=== PATIENT | male | born 2005 | race Caucasian/White ===

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

== ENCOUNTER 2024-04-05 05:23 | Emergency (ER) | payer OTHER, SELFPAY ==
[2024-04-05 05:23] VITALS: BP 157/103; PULSE 112; RESP 16; TEMP 36.2; O2SAT 98; BMI 39.3
[2024-04-05 05:28] VITALS: BP 157/103; PULSE 112; RESP 16; TEMP 36.2; O2SAT 98
[2024-04-05] MEDS: predniSONE 20 MG Tablet 60 MG PO (06:15)
[2024-04-05] MEDS: DiphenhydrAMINE 25 MG Capsule PO (06:15)
--- NOTE | 2024-04-05 07:12 | EDS_ITS ---
HPI History of Present Illness Chief Complaint: Rash Narrative Narrative: Patient is a 18-year-old male presenting with worsening rash. Patient has been using Lotrimin for jock itch and was recently prescribed fluconazole to take once a week for 3 weeks. After taking the first dose he now has a rash that has developed in his bilateral axilla and is since progressed to the AC fossa's bilateral as well as on his neck and trunk. He states the rash is quite itchy. He came in for evaluation of allergic reaction. Did not take any new medications. No new lotions or soaps reported. Is feeling some mild chest tightness. Denies any sores or swelling in his mouth. Denies any painful urination or defecation. His Zoloft was increased last month but no other medication changes reported. PFSH PENDING SALE TO [facility] Home Medications ?Medication ?Instructions ?Recorded ?Last Taken ?Type amitriptyline 25 mg tablet 25 mg PO QHS 04/05/24 Unknown History fluconazole 150 mg tablet 150 mg PO QWEEK 04/05/24 Unknown History ketoconazole 2 % topical cream 1 applic topical DAILY 3 weeks #60 04/05/24 Unknown Rx grams prednisone 20 mg tablet 40 mg (2 x 20 mg) PO DAILY #8 tabs 04/05/24 Unknown Rx rizatriptan 10 mg tablet 10 mg PO DAILY PRN migraine 04/05/24 Unknown History headache sertraline 100 mg tablet 100 mg PO DAILY 04/05/24 Unknown History Allergy/AdvReac Type Severity Reaction Status Date / Time No Known Allergies Allergy Verified 04/05/24 05:24 Social History Smoking Status: Never smoker ROS ROS ED Constitutional Constitutional ED: Denies chills or fever(s) Eyes Eyes: Denies change in vision ENT ENT ED: Reports other Details: Denies any mouth sores or pain ; Denies sore throat Cardiovascular Cardiovascular: Reports other Details: Positive chest tightness ; Denies chest pain Respiratory/Chest Respiratory/Chest: Denies cough or dyspnea Gastrointestinal Gastrointestinal: Denies nausea or vomiting Musculoskeletal Musculoskeletal: Denies arthralgias or myalgias Integumentary Reports rash Neurologic Neurologic: Denies headache(s) EXAM Physical Exam Const Vital Signs: 04/05/24 05:23 04/05/24 05:28 04/05/24 07:26 Temperature 97.2 F L 97.2 F L 98.0 F Temperature Source Temporal Temporal Pulse Rate 112 H 112 H 89 Respiratory Rate 16 16 18 Blood Pressure 157/103 H 157/103 H 133/88 H Blood Pressure Mean 121 121 103 Pulse Ox 98 98 100 Oxygen Delivery Method Room Air Room Air Positive well nourished and well developed General Appearance ED: well developed and NAD HEENT Reports moist mucous membranes HEENT Narrative: No oral lesions appreciated, oral pharynx normal appearing. Uvula is midline. No edema of the mouth appreciated. Eyes PERRL and EOMs intact bilaterally Eyes Narrative: No periorbital edema Neck supple Neck Narrative: No stridor Chest Wall inspection of chest normal Resp normal respiratory effort and clear to auscultation bilaterally Cardio regular rate and regular rhythm GI normal to inspection, nondistended, normoactive bowel sounds and non-tender Extremity normal to inspection General Extremety ED: Negative for edema General Extremity: Negative for edema Neuro oriented x3 Sensorium / Orientation: alert Psych mental status grossly normal Skin Skin Narrative: Patient has scattered maculopapular rash of his bilateral axilla, AC fossa, neck and now on his trunk. In addition he does have a erythematous rash of the bilateral groin with satellite lesions consistent with tinea cruris. Negative Nikolsky sign. MDM MDM MDM Narrative Medical decision making narrative: Patient is evaluated for a progressing diffuse rash. Vital signs significant for mild tachycardia. Patient is quite nontoxic and well-appearing no signs of anaphylaxis on physical exam. I do not think he requires epinephrine. Will be given dose of Benadryl and prednisone. Patient is monitored and has no progression of his symptoms. I suspect this is a drug reaction to the fluconazole. He does not have any mucosal membrane involvement or palmar involvements. No concern for Mota- Scotty syndrome or erythema multiforme. Will stop the patient's of fluconazole. Will switch him to ketoconazole daily application. He can stop his Lotrimin. Will put him on a burst of steroids. Patient is agreeable this plan of care. Given return precautions. Does not have any progression of s ymptoms while in the emergency room and I feel stable for outpatient follow-up. Is given referral for dermatology for outpatient follow-up. Discharge Plan Triage Chief Complaint: Rash ED Provider: Monica Ocampo Dx/Rx/DC Orders Clinical Impression: Drug reaction, Tinea cruris Instructions: ED Drug Reaction, Other, ED Tinea Cruris General Prescriptions: New ketoconazole 2 % cream 1 applic topical DAILY 21 Days Qty: 60 0RF prednisone 20 mg tablet 40 mg PO DAILY Qty: 8 0RF No Action fluconazole 150 mg tablet 150 mg PO QWEEK rizatriptan 10 mg tablet 10 mg PO DAILY PRN (Reason: migraine headache) sertraline 100 mg tablet 100 mg PO DAILY amitriptyline 25 mg tablet 25 mg PO QHS Primary Care Provider: Maricel Wiseman NP Referrals: Alvin Vidal MD [Med Staff - Transmission Design Engineer] - 1-2 Weeks Maricel Wiseman NP, LOW PR[employer]URE BOILER OPERATOR-C [Primary Care Provider] - Activity Restrictions/Additional Instructions: You can stop using [id number] spray for your groin. You been prescribed a different cream that is to be used daily. Stop using the fluconazole as suspect you had a drug reaction to it. You may take Benadryl as needed for further allergic symptoms. Return to the ER if you have a progression worsening your symptoms. I do recommend he follow-up with dermatology especially if your rashes are not improving. Print Language: Samoan Disposition Disposition: Home, Self Care Discharge Date/Time: 04/05/24 07:28
[2024-04-05 07:26] VITALS: BP 133/88; PULSE 89; RESP 18; TEMP 36.7; O2SAT 100
== END 2024-04-05 07:28 | disposition home or self-care (01) ==
PROVIDERS: Emergency Provider Emergency Medicine; PCP Registered Nurse; Visit Provider Emergency Medicine
DX: B35.6 Tinea cruris (principal); T49.0X5A Adverse effect of local antifungal, anti-infective and anti-inflammatory drugs, initial encounter; Z79.899 Other long term (current) drug therapy
CPT/HCPCS: 99282

== ENCOUNTER → 2025-04-26 | Outpatient (CLI) | payer OTHER, SELFPAY ==
--- NOTE | 2025-04-26 10:20 | RAD_ITS ---
PROCEDURE: ABDOMEN SINGLE VIEW 04/26/2025 REASON FOR EXAM: CONSTIPATION, ABDOMINAL PAIN TECHNIQUE: Three-view supine abdomen COMPARISON: None provided. RAD/Abdomen Single View IMPRESSION: The bowel-gas pattern is unremarkable. No excess stool burden is identified. No mass or mass effect is seen. No significant osseous abnormality is seen Reading Location: [place] [id number]
[2025-04-26 11:27] LABS: Hematocrit 46.6 % (40-54); Hemoglobin 15.9 g/dL (13.0-16.5); Immature Granulocytes Count 0.040 X10^3/uL (0.0-0.0); Mean Corp Hgb Conc 34.1 g/dL (32-36); Mean Corpuscular Volume 81.6 fL (80-94); Mean Platelet Vol. 10.5 fl (6.2-12.0); NRBC Flagged by Analyzer 0 % (0-5); Platelet Count 319 K/mm3 (150-450); RBC Distribution Width CV 13.6 % (11.6-14.6); RBC Distribution Width SD 40.4 fl (35.1-43.9); Red Blood Count 5.71 M/mm3 (4.6-6.2); White Blood Count 9.8 K/mm3 (4.4-11.0)
[2025-04-26 12:38] LABS: AST(SGOT) 70 U/L (<=37); Alanine Aminotransfer ALT/SGPT 82 U/L (<=46); Albumin, Serum 4.7 g/dL (3.5-5.0); Alkaline Phosphatase 134 U/L (40-129); Anion Gap 16 (5-15); BUN 12 mg/dL (4-19); BUN/Creat Ratio 13.9 RATIO (10-20); CRP 24.00 mg/L (0.0-3.0); Calcium,Total 10.5 mg/dL (7.6-11.0); Carbon Dioxide 22.8 mmol/L (21.0-32.0); Chloride 100 mmol/L (98-108); Globulin 2.9 g/dL (2.2-4.2); Glucose 143 mg/dL (70-99); Potassium 3.7 mmol/L (3.3-5.1)
[2025-04-29 14:08] LABS: ANTINUCLEAR ANTIBODIES DIRECT Negative (Negative)
== END | disposition home or self-care (01) ==
LOC: LAB 09:52
PROVIDERS: PCP Registered Nurse
DX: K59.00 Constipation, unspecified (principal); R10.9 Unspecified abdominal pain; R11.0 Nausea; K92.1 Melena
CPT/HCPCS: 36415; 74018; 80053; 83516; 84443; 85025; 86036; 86038; 86140; 86225; 86671

== ENCOUNTER → 2025-05-16 | Outpatient (CLI) | payer OTHER, SELFPAY ==
--- NOTE | 2025-05-16 12:55 | NM_ITS ---
PROCEDURE: GASTRIC EMPTYING STUDY 05/16/2025 REASON FOR EXAM: EARLY SATIETY TECHNIQUE: The patient ingested a standard meal of sulfur colloid and oatmeal and water. Total time taken to ingest the meal was minutes. There was no vomiting postprandially. Anterior and posterior planar images of the upper abdomen were obtained for 1 minute immediately following the meal at 1h, 2h and 4h if more than 10% of the activity persisted within the stomach. Regions of interest were drawn, and a geometric mean was used to calculate a [id number]. RADIOPHARMACEUTICAL: Sulfur colloid DOSE 1.1mCi FINDINGS: Percent activity remaining in stomach: 1 hour 14 % (normal 37-90%) NM/Gastric Emptying Study IMPRESSION: Normal gastric emptying. Reading Location: [id number]
== END | disposition home or self-care (01) ==
PROVIDERS: PCP Registered Nurse
DX: K59.00 Constipation, unspecified (principal); R10.9 Unspecified abdominal pain; R11.0 Nausea; K92.1 Melena
CPT/HCPCS: 78264; A9541